=== PATIENT | male | born 1995 | race African-American/Black ===

== ENCOUNTER 2017-05-28 08:52 | Emergency (ER) | payer OTHER ==
[~2017-05-28] VITALS: Ht 188 cm; Wt 95.2 kg
[2017-05-28 08:56] VITALS: BP 100/62
[2017-05-28] MEDS ORDERED: [UNRECOGNIZED DRUG - CODE] PO (09:46)
[2017-05-28] MEDS ORDERED: DEXAMETHASONE 4 MG TABLET ONE (09:58)
[2017-05-28] MEDS ORDERED: ACETAMINOPHEN 500 MG TABLET ONE (09:58)
[2017-05-28] MEDS ORDERED: DEXAMETHASONE 4 MG TABLET PO ONE (10:00)
[2017-05-28] MEDS ORDERED: ACETAMINOPHEN 500 MG TABLET PO ONE (10:00)
== END 2017-05-28 10:14 | disposition home or self-care (01) ==
LOC: ED 10:01
DX: J03.00 Acute streptococcal tonsillitis, unspecified (principal); R50.9 Fever, unspecified
CPT/HCPCS: 99283

== ENCOUNTER 2017-06-11 12:16 | Emergency (ER) | payer OTHER ==
[~2017-06-11] VITALS: Ht 188 cm; Wt 91.4 kg
[~2017-06-11 12:16] MED LIST: [UNRECOGNIZED DRUG - CODE] PO
[2017-06-11 13:00] VITALS: BP 127/68
== END 2017-06-11 13:03 | disposition home or self-care (01) ==
LOC: ED 12:55
DX: J02.0 Streptococcal pharyngitis (principal)
CPT/HCPCS: 99283